=== PATIENT | female | born 1935 | race Caucasian/White ===

== ENCOUNTER 2018-10-16 08:22 | Emergency (ER) | payer MEDICARE, BC ==
[2018-10-16 09:00] LABS: #Eosinphils 0.1 thou/uL (0.0-0.7); #Lymphocytes 1.4 thou/uL (1.20-3.40); #Monocytes 0.3 thou/uL (0.11-0.59); #Neutrophils 3.5 thou/uL (1.40-6.50); %Basophils 0.4 % (0.0-1.0); %Eosinophils 1.7 % (0.0-10.0); %Lymphocytes 26.1 % (21.0-51.0); %Monocytes 5.8 % (0.0-10.0); Hemoglobin 13.3 g/dL (12.0-16.0); Mean Corpuscular HGB CONC 33.8 g/dL (32.0-36.0); Mean Corpuscular Volume 91.8 fL (78.0-98.0); Mean Platelet Volume 6.3 fL (7.4-10.4); Platelet Count 245 thou/uL (130-400); Red Blood Cell (RBC) Count 4.29 mill/uL (4.20-5.40); White Blood Cell (WBC) Count 5.3 thou/uL (4.8-10.8)
[2018-10-16 09:13] LABS: ALT (SGPT) 16 U/L (8-55); AST (SGOT) 18 U/L (5-34); Albumin 4.1 g/dL (3.4-4.8); Alkaline Phosphatase 93 U/L (40-150); Anion Gap 13 mmol/L (10-20); BUN (Urea Nitrogen) 10 mg/dL (9.8-20.1); Bilirubin, Total 0.6 mg/dL (0.2-1.2); Calc. Creatinine Clearance 0 mL/min (70-130); Calcium 9.3 mg/dL (7.8-10.44); Carbon Dioxide 22 mmol/L (23-31); Chloride 109 mmol/L (98-107); Estimated GFR-MDRD 81; Globulin 2.9 g/dL (2.4-3.5); Glucose 128 mg/dL (83-110); Potassium 3.8 mmol/L (3.5-5.1); Sodium 140 mmol/L (136-145)
[2018-10-16 09:17] LABS: CKMB 1.4 ng/mL (0-6.6); Troponin I Less than 0.010 ng/mL (< 0.028)
[2018-10-16] MEDS ORDERED: Lidocaine Viscous Sol 2% 15 ml UD Cup ONE (09:40)
[2018-10-16] MEDS ORDERED: Mag-Al 1200 mg/1200 mg/30 ML UDCUP ONE (09:40)
[2018-10-16 10:03] LABS: Bilirubin Negative (Negative); Blood, Urine Small (Negative); Clarity CLOUDY (Clear); Glucose, Urine (Dipstick) Negative (Negative); Leukocyte Small (Negative); Nitrite Negative (Negative); Protein, Urine (Dipstick) Negative (Neg-Trace); Specific Gravity, Urine 1.012 (1.002-1.036); Urobilinogen 0.2 mg/dL (0.2-1.0); pH, Urine 5.5 (5.0-9.0)
[2018-10-16 10:05] LABS: Bacteria/HPF 1+ HPF (None Seen); Hyaline Casts/LPF 0-3 HYALINE CAST LPF (0-3 Hyaline); Pathc Cast-AUWi Flag 0.72 (0-2.49)
--- NOTE | 2018-10-16 10:39 | RAD ---
PA AND LATERAL VIEWS OF THE CHEST: History: Chest pain FINDINGS: Comparison is made with exam of 01-13-16. The heart size is mildly enlarged. The lungs are well expanded without focal areas of consolidation, pneumothoraces, dwayne pulmonary edema or pleural effusions. There are degenerative changes in the spi ne. IMPRESSION: Mild cardiomegaly. POS: H
[2018-10-16 12:18] LABS: Troponin I Less than 0.010 ng/mL (< 0.028)
== END 2018-10-16 12:32 | disposition home or self-care (01) ==
LOC: ERS 08:22
DX: R10.13 Epigastric pain (principal); I10 Essential (primary) hypertension; M81.0 Age-related osteoporosis without current pathological fracture; E55.9 Vitamin D deficiency, unspecified
CPT/HCPCS: 36415; 71046; 80053; 81003; 81015; 82553; 84484; 85025; 93005

== ENCOUNTER 2019-01-22 23:04 | Inpatient (IN) | payer MEDICARE, BC ==
[2019-01-22] MEDS ORDERED: Aspirin Chewable 81 MG TAB ONE (23:15)
[2019-01-23 01:24] VITALS: BMI 26.1
[2019-01-23] MEDS ORDERED: Lorazepam 2 MG/ML VIAL SLOW IVP SCH (10:30)
[2019-01-23] MEDS ORDERED: Aspirin 325 mg Enteric Coated Tablet PO SCH (11:45)
--- NOTE | 2019-01-23 13:06 | MRI ---
MRI BRAIN NONCONTRAST: 01/23/2019 HISTORY: An 83-year-old female with acute stroke. COMPARISON: No prior MRIs. FINDINGS: There is a very small focus of restricted diffusion at the junction between the posterior aspect of t he posterior limb of the right internal capsule and the right thalamus, associated with mild T2 hyper intensity, representing a tiny acute lacunar infarction. There is no obstructive hydrocephalus, acut e intraaxial hemorrhage, mass effect, midline shift, or extraaxial fluid collection. Diffuse age-cameron ropriate parenchymal volume loss. Moderate chronic ischemic white matter changes in the mullins radia ta and centrum semiovale. IMPRESSION: Positive for acute tiny lacunar infarction at the junction between the posterior limb of the right in ternal capsule and the right thalamus. CODE T JN R POS: CARLY
--- NOTE | 2019-01-23 13:39 | ULT ---
CAROTID DUPLEX SONOGRAM: HISTORY: CVA. FINDINGS: RIGHT: Color and spectral Doppler evaluation, peak systolic velocity of 85 cm/s, and IC to CC ratio of 0.8 s uggests no hemodynamically significant stenosis within the extracranial right ICA. Antegrade flow wi thin the vertebral artery. LEFT: Color and spectral Doppler evaluation, peak systolic velocity of 70 cm/s, and IC to CC ratio 0.8 sugg ests no hemodynamically significant stenosis within the extracranial left ICA. Antegrade flow within the vertebral artery. IMPRESSION: No sonographic evidence of significant extracranial internal carotid artery stenosis. No significant plaque visualized. POS: CALDERON
[2019-01-23] MEDS: Cyclobenzaprine 10 MG TAB PO PRN (15:01)
--- NOTE | 2019-01-23 15:02 | HP ---
PRIMARY CARE PROVIDER: Morris Dillard MD CHIEF COMPLAINT: Leg weakness. HISTORY OF PRESENT ILLNESS: Ms. Lynne is a pleasant 83-year-old lady, who was seen at [facility] on January 23, 2019, following transfer from the emergency room at [facility]. She lives at home with her . Her is invalid. She reports that 2 days ago, she started having vertigo. She has a history of on and off vertigo. She has meclizine at home and she took meclizine. Around the time that she had vertigo, she also had leg weakness. She was dragging her left leg. She was trying to ambulate yesterday when she fell. She reports that her legs gave away. She also thinks that she may have tripped on something, but it is unclear. She was taken to the emergency room at [facility], where she was found to have left fibular fracture. She was transferred to the emergency room at [facility]. She denies any chest pain or shortness of breath. She denies any fevers or chills. She denies any nausea or vomiting. REVIEW OF SYSTEMS: All other systems reviewed and found to be negative. PAST MEDICAL HISTORY: Hyperactive bladder, hypertension, osteoporosis, and vertigo. PAST SURGICAL HISTORY: Tubal ligation. SOCIAL HISTORY: No history of tobacco use, alcohol use, or recreational drug use. CODE STATUS: I discussed her code status. She is full code. ALLERGIES: SULFA. CURRENT MEDICATIONS: 1. Antivert 25 mg every 6 hours as needed. 2. Lisinopril 10 mg daily. 3. Ibandronate 150 mg intramuscularly every month and ICaps one tablet daily. FAMILY HISTORY: Her father of stroke at age 53. PHYSICAL EXAMINATION: GENERAL: Ms. Lynne is awake and alert, not in acute distress. VITAL SIGNS: Blood pressure is 118/64, pulse 68, respiratory rate 18, and oxygen saturation 93% on room air. She is afebrile. EYES: No scleral icterus, no conjunctival pallor. ENT: Moist mucosal membranes. No oropharyngeal erythema or exudates. NECK: Supple, nontender, trachea is midline. RESPIRATORY: Accessory muscles of breathing are not active. Chest wall movements are symmetric bilaterally. LUNGS: Clear to auscultation without wheeze, rhonchi, or crepitations. CARDIOVASCULAR: S1 and S2 are heard, regular. Peripheral pulses palpable. No carotid bruit. No pericardial rub. ABDOMEN: Soft, nontender, bowel sounds heard, no hepatomegaly, no splenomegaly. NEUROLOGIC: Cranial nerves 2 through 12 intact, deep tendon reflexes 2+. Could not thoroughly assess her left lower extremity since it was in a cast. MUSCULOSKELETAL: Power is 5/5 in right upper and lower extremities and left upper extremity. Could not assess left lower extremity very well due to the presence of cast. SKIN: No rashes or subcutaneous nodules. LYMPHATIC: No cervical lymphadenopathy. PSYCHIATRIC: Normal mood, normal affect. The patient is oriented to person, place, and time. LABORATORY DATA: Ms. Lynne's labs and investigations were reviewed. I reviewed her telemetry, which shows normal sinus rhythm, no ST changes to suggest an acute coronary syndrome. I also reviewed noncontrast CT scan of the brain, which did not show any acute intracranial abnormality. Left tibia/fibula x-rays showed possible fracture of tibial eminence. Left foot x-ray showed nondisplaced distal fibular fracture. She has an unremarkable CBC, normal sodium, normal potassium, normal creatinine, unremarkable liver profile. ASSESSMENT AND PLAN: Ms. Lynne is a pleasant 83-year-old lady, who was seen at [facility] on January 23, 2019. Her problem list includes: 1. Left lower extremity weakness: Ms. Lynne is presenting with left lower extremity weakness, etiology is unclear. Differential diagnosis is still wide. She will also need to be ruled out for stroke. We will check MRI of brain, 2D echo and carotid Dopplers. We will consult Neurology Service. We will start her on aspirin. She reports that she takes aspirin at 81 mg dose daily. We will increase to 325 mg daily. We will also start her on statin. 2. Fall: The patient will be evaluated by Therapy Services. 3. Hypertension: We will monitor vital signs and titrate antihypertensives as needed. 4. Vertigo. 5. Distal fibular fracture: We will consult Orthopedic Service for opinion and help with management. Many thanks for allowing me to participate in your patient's care. Please feel free to contact me with any questions or concerns. LEVEL OF RISK: High. LEVEL OF COMPLEXITY: High. Job ID: [id number]
[2019-01-23] MEDS: Vit A,C & E/Lutein/Minerals Tablet PO SCH (21:10)
[2019-01-23] MEDS: Atorvastatin Calcium 40 MG TAB PO SCH (21:10)
[2019-01-23] MEDS: Stress 600 With Zinc 1 TAB PO SCH (21:10)
[2019-01-23] MEDS: Lisinopril 5 MG TAB PO SCH (21:10)
--- NOTE | 2019-01-23 23:32 | CON ---
DATE OF CONSULTATION: 01/23/2019 CONSULTING PHYSICIAN: Hospitalist Service. IMPRESSION: 1. Lacunar infarction with mild left hemiparesis. 2. Left foot fracture secondary to a fall. 3. Hypertension. 4. Mild hyperlipidemia. PLAN: 1. Add a statin. 2. Continue aspirin. 3. Echocardiogram. 4. PT assessment to determine whether the patient can be discharged to home. HISTORY OF PRESENT ILLNESS: Ms. Lynne is an 83-year-old woman who lives at home independently. She has had some chronic vertigo that she has had evaluated by ENT. She uses meclizine p.r.n. She was having some intermittent vertigo and was walking out to the garage. She suddenly felt that her legs would not support her and she collapsed to the floor. Her foot got caught against the door and she heard something crack. She was unable to get up after that. She was brought into the hospital for evaluation. She has not noticed any change in her speech. She did not note any weakness in her arm. There has been no difficulty swallowing. She initially had a CT scan of the brain, which showed moderately impressive small-vessel ischemic change. MRI of the brain shows an acute area of infarction involving the right internal capsule. Carotid ultrasound does not show any evidence of stenosis. Her cholesterol ratio is 3.7. PAST MEDICAL HISTORY: Hypertension. ALLERGIES: TAMIFLU AND SULFA. MEDICATIONS: Medication list was reviewed. SOCIAL HISTORY: No tobacco or alcohol use. FAMILY HISTORY: Noncontributory. REVIEW OF SYSTEMS: Ten-system review of systems is otherwise negative. PHYSICAL EXAMINATION: GENERAL: She is a pleasant elderly lady, in no acute distress. VITAL SIGNS: Stable. She is afebrile. HEENT: Pupils are equal and reactive. Conjunctivae clear. No nystagmus noted. Oropharynx is clear. NECK: Supple. No lymphadenopathy. EXTREMITIES: No cyanosis, clubbing, or edema. NEUROLOGIC: She was alert and cooperative. Her speech was fluent and clear. She had a mild left facial droop. Motor exam showed a fix on the left with arm roll testing. Sensation was intact to touch. The left leg could not be assessed due to her casting. The gait was not testable. No tremor or dysmetria was present. Sensation was subjectively intact to light touch. IMAGING: EKG shows sinus rhythm. SUMMARY: This is an elderly lady with hypertension and lacunar stroke causing some left-sided weakness resulting in a secondary fall and fracture. I would continue some aspirin and a low-dose statin. She will need to have PT assessment to determine whether she would be able to ambulate independently enough to return home or may need some rehab. Job ID: [id number]
[2019-01-24 05:04] LABS: #Basophils 0.1 thou/uL (0.0-0.2); #Eosinphils 0.2 thou/uL (0.0-0.7); #Lymphocytes 1.5 thou/uL (1.20-3.40); #Monocytes 0.5 thou/uL (0.11-0.59); #Neutrophils 3.6 thou/uL (1.40-6.50); %Eosinophils 3.2 % (0.0-10.0); %Lymphocytes 25.6 % (21.0-51.0); %Monocytes 8.2 % (0.0-10.0); %Neutrophils 62.1 % (42.0-75.0); Hemoglobin 12.8 g/dL (12.0-16.0); Mean Corpuscular HGB CONC 33.7 g/dL (32.0-36.0); Mean Corpuscular Hemoglobin 31.7 pg (27.0-31.0); Mean Corpuscular Volume 94.1 fL (78.0-98.0); Mean Platelet Volume 6.5 fL (7.4-10.4); Platelet Count 202 thou/uL (130-400); RBC Distribution Width 13.9 % (11.5-14.5); Red Blood Cell (RBC) Count 4.06 mill/uL (4.20-5.40); White Blood Cell (WBC) Count 5.8 thou/uL (4.8-10.8)
[2019-01-24 05:23] LABS: Anion Gap 12 mmol/L (10-20); BUN (Urea Nitrogen) 12 mg/dL (9.8-20.1); Calc. Creatinine Clearance 60 mL/min (70-130); Calcium 9.1 mg/dL (7.8-10.44); Carbon Dioxide 25 mmol/L (23-31); Cardiac Risk 4.7 (Less than 4.5); Chloride 108 mmol/L (98-107); Cholesterol 165 mg/dl (< 200 Desired); Estimated GFR-MDRD 75; Glucose 110 mg/dL (83-110); HDL Cholesterol 35 mg/dL (>60 Neg Risk); LDL Cholesterol, Calculated 107 mg/dL; Potassium 3.8 mmol/L (3.5-5.1); Sodium 141 mmol/L (136-145); Triglycerides 117 mg/dL (Less than 150)
[2019-01-24] MEDS: Enoxaparin Sodium 40 MG/0.4 ML SYRINGE SC SCH (10:36)
[2019-01-24] MEDS: Vit A,C & E/Lutein/Minerals Tablet PO SCH ×2 (10:37→20:30)
[2019-01-24] MEDS: Stress 600 With Zinc 1 TAB PO SCH ×2 (10:37→20:31)
[2019-01-24] MEDS: Aspirin 325 mg Enteric Coated Tablet PO SCH (10:37)
[2019-01-24] MEDS: Lisinopril 10 MG TAB PO SCH (10:37)
--- NOTE | 2019-01-24 10:59 | CON ---
DATE OF CONSULTATION: 01/24/2019 CONSULTING PHYSICIAN: Hospitalist Service. CHIEF COMPLAINT: Left ankle pain. HISTORY OF PRESENT ILLNESS: Ms. Lynne is an 83-year-old female, who has a history she reports of vertigo. She has been admitted to the hospital with a lacunar infarction with left hemiparesis. She fell prior to her admission. She twisted her foot. She was found to have a nondisplaced distal fibular fracture. A splint was placed in the emergency department. She has been in the hospital for workup regarding her infarction. She had MRI yesterday. The patient lives independently normally. PAST MEDICAL HISTORY: Hypertension. ALLERGIES: TAMIFLU AND SULFA. MEDICATIONS: Please see chart. SOCIAL HISTORY: The patient denies tobacco, alcohol, or drug use. FAMILY MEDICAL HISTORY: Noncontributory. REVIEW OF SYSTEMS: Positive for left ankle pain. Otherwise, negative 10-point review of systems currently. DIAGNOSTIC DATA: X-rays of the left ankle demonstrate a nondisplaced distal fibular fracture, this appears acute. PHYSICAL EXAMINATION: VITAL SIGNS: Temperature is 98.3, pulse is 73, respiratory rate 14, oxygen saturation 93%, and blood pressure is 118/68. GENERAL: She is alert and oriented, sitting upright, in no apparent distress. RESPIRATORY: Breathing comfortably. ABDOMEN: Soft, nontender, and nondistended. MUSCULOSKELETAL: The left leg is in a splint. She has a warm and well-perfused foot. She can wiggle the toes. Normal sensation distally. IMPRESSION: Cerebrovascular accident and left distal fibular fracture, nondisplaced. PLAN: At this point, the patient will be able to be placed in a walking boot. I would like to have her splint removed when the boot arrives. Her boot will be more comfortable and we will allow her to ambulate with more ease. She can weight bear as tolerated. I would like to see her back in the clinic in approximately 3 weeks for repeat x-ray of the ankle. Job ID: [id number]
--- NOTE | 2019-01-24 14:26 | PDOC.PN ---
- Subjective Encounter Start Date: 01/24/19 Encounter Start Time: 07:00 Pt seen for followup re: ischemic CVA. c/o LLE weakness, no other complaints. - Objective Resuscitation Status - Order Detail: 01/23/19 09:10 Resuscitation Status Routine Resuscitation Status: FULL: Full Resuscitation Discussed with: patient Vital Signs & Weight: Vital Signs (12 hours) Temp Pulse Pulse Pulse Resp BP BP 01/24/19 11:31 97.7 F 91 18 01/24/19 10:37 148/76 H 01/24/19 10:15 86 92 148/76 H 01/24/19 09:50 81 86 112/65 01/24/19 08:00 01/24/19 07:32 98.3 F 73 14 01/24/19 04:00 98.1 F 72 18 BP BP Pulse Ox 01/24/19 11:31 133/63 97 01/24/19 10:37 01/24/19 10:15 152/78 H 01/24/19 09:50 148/76 H 01/24/19 08:00 93 L 01/24/19 07:32 118/68 93 L 01/24/19 04:00 104/55 L 95 Weight Weight 142 lb 11.2 oz I&O: 01/23/19 01/24/19 01/25/19 06:59 06:59 06:59 Intake Total 1210 Balance 1210 Result Diagrams: 01/24/19 04:37 01/24/19 04:37 Phys Exam - Physical Examination Constitutional: NAD HEENT: moist MMs, sclera anicteric, oral pharynx no lesions, 2+ tonsils Neck: no nodes, no JVD, supple, full ROM Respiratory: clear to auscultation bilateral Cardiovascular: RRR, no rub S1, S2 Gastrointestinal: soft, non-tender, no distention, positive bowel sounds Neurological: moves all 4 limbs Psychiatric: normal affect Dx/Plan (1) Ischemic cerebrovascular accident (CVA) Code(s): I63.9 - CEREBRAL INFARCTION, UNSPECIFIED Status: Acute Comment: aspirin dose increased, started on statin (2) Left fibular fracture Code(s): S82.402A - UNSP FRACTURE OF SHAFT OF LEFT FIBULA, INIT FOR CLOS FX Status: Acute Comment: conservative management (3) HTN (hypertension) Code(s): I10 - ESSENTIAL (PRIMARY) HYPERTENSION Status: Chronic Comment: monitor vital signs, titrate antihypertensives as needed (4) Vertigo Code(s): R42 - DIZZINESS AND GIDDINESS Status: Chronic Comment: Improved - Plan * . Review of Systems - Review of Systems Constitutional: negative: fever, chills, sweats, weakness, malaise Respiratory: negative: Cough, Shortness of Breath, SOB with Excertion, Pleuritic Pain, Wheezing Cardiovascular: negative: chest pain, palpitations, orthopnea, paroxysmal nocturnal dyspnea, edema, light headedness Gastrointestinal: negative: Nausea, Vomiting, Abdominal Pain, Diarrhea, Constipation, Melena, Hematochezia Musculoskeletal: Leg Pain Neurological: Weakness - Medications/Allergies Allergies/Adverse Reactions: Allergies Allergy/AdvReac Type Severity Reaction Status Date / Time acetaminophen Allergy Verified 01/23/19 04:59 [From Theraflu Multi-Symptom Cold] dextromethorphan Allergy Verified 01/23/19 04:59 [From Theraflu Multi-Symptom Cold] phenylephrine Allergy Verified 01/23/19 04:59 [From Theraflu Multi-Symptom Cold] Sulfa (Sulfonamide Allergy Verified 01/23/19 01:04 Antibiotics) Medications: Current Medications Aspirin (Ecotrin) 325 mg PO DAILY [facility] Last Admin: 01/24/19 10:37 Dose: 325 mg Atorvastatin Calcium (Lipitor) 40 mg PO HS [facility] Last Admin: 01/23/19 21:10 Dose: 40 mg Cyclobenzaprine HCl (Flexeril) 10 mg PO TIDPRN PRN PRN Reason: Muscle Spasm Last Admin: 01/23/19 15:01 Dose: 10 mg Enoxaparin Sodium (Lovenox) 40 mg SC 0900 [facility] Last Admin: 01/24/19 10:36 Dose: 40 mg Lisinopril (Zestril) 10 mg PO DAILY [facility] Last Admin: 01/24/19 10:37 Dose: 10 mg Lisinopril (Zestril) 5 mg PO HS [facility] Last Admin: 01/23/19 21:10 Dose: 5 mg Multivitamins/Minerals (Ocuvite With Lutein) 1 tab PO BID [facility] Last Admin: 01/24/19 10:37 Dose: 1 tab Multivitamins/Zinc (Stress 600 With Zinc) 1 tab PO BID [facility] Last Admin: 01/24/19 10:37 Dose: 1 tab Sodium Chloride (Flush - Normal Saline) 10 ml IVF PRN PRN PRN Reason: Saline Flush Last Admin: 01/23/19 21:13 Dose: 10 ml
[2019-01-24] MEDS: Atorvastatin Calcium 40 MG TAB PO SCH (20:30)
[2019-01-24] MEDS: Lisinopril 5 MG TAB PO SCH (20:30)
[2019-01-24] MEDS: Cyclobenzaprine 10 MG TAB PO PRN (22:53)
[2019-01-25] MEDS: Cyclobenzaprine 10 MG TAB PO PRN (04:19)
[2019-01-25 05:33] LABS: #Eosinphils 0.2 thou/uL (0.0-0.7); #Lymphocytes 1.7 thou/uL (1.20-3.40); #Monocytes 0.6 thou/uL (0.11-0.59); #Neutrophils 3.5 thou/uL (1.40-6.50); %Basophils 0.3 % (0.0-1.0); %Eosinophils 2.8 % (0.0-10.0); %Lymphocytes 28.2 % (21.0-51.0); %Neutrophils 58.6 % (42.0-75.0); Hemoglobin 12.7 g/dL (12.0-16.0); Mean Corpuscular Hemoglobin 31.4 pg (27.0-31.0); Mean Corpuscular Volume 95.3 fL (78.0-98.0); Mean Platelet Volume 6.6 fL (7.4-10.4); Platelet Count 208 thou/uL (130-400); Red Blood Cell (RBC) Count 4.05 mill/uL (4.20-5.40)
[2019-01-25 05:53] LABS: Anion Gap 13 mmol/L (10-20); BUN (Urea Nitrogen) 13 mg/dL (9.8-20.1); Calc. Creatinine Clearance 61 mL/min (70-130); Calcium 9.1 mg/dL (7.8-10.44); Carbon Dioxide 22 mmol/L (23-31); Chloride 108 mmol/L (98-107); Estimated GFR-MDRD 76; Glucose 117 mg/dL (83-110); Sodium 139 mmol/L (136-145)
[2019-01-25] MEDS: Vit A,C & E/Lutein/Minerals Tablet PO SCH (08:27)
[2019-01-25] MEDS: Enoxaparin Sodium 40 MG/0.4 ML SYRINGE SC SCH (08:28)
[2019-01-25] MEDS: Lisinopril 10 MG TAB PO SCH (08:28)
[2019-01-25] MEDS: Aspirin 325 mg Enteric Coated Tablet PO SCH (08:28)
[2019-01-25] MEDS: Stress 600 With Zinc 1 TAB PO SCH (08:28)
--- NOTE | 2019-01-25 12:08 | DIS ---
DATE OF ADMISSION: 01/22/2019 DATE OF DISCHARGE: 01/25/2019 PRIMARY CARE PROVIDER: Morris Dillard MD. DISCHARGE DIAGNOSES: 1. Acute ischemic cerebrovascular accident. 2. Acute lacunar infarction. 3. Left fibular fracture. CONDITION OF PATIENT ON THE DAY OF DISCHARGE: Stable. I assessed Ms. Lynne on the day of discharge. She denies any chest pain or shortness of breath. Vital signs are stable. S1 and S2 are heard, regular. Lungs are clear to auscultation bilaterally. DISCHARGE MEDICATIONS: 1. Lisinopril 10 mg in the morning and 5 mg at bedtime. 2. Vitamin B complex tablet one tablet two times a day. 3. PreserVision soft gel one capsule two times a day. 4. Aspirin 325 mg daily. 5. Lipitor 40 mg at bedtime. CONSULTATIONS DURING THIS HOSPITALIZATION: 1. Neurology, Dr. Rasmussen. 2. Orthopedic surgery, Dr. Scott. HOSPITAL COURSE: Ms. Lynne is a pleasant 83-year-old lady, who was admitted to [facility] for left lower extremity weakness and fall on January 23, 2019. Please refer to my history and physical note dated January 23, 2019, for further details. She was seen by Orthopedic Surgery Service for left distal fibular fracture. She was advised boot and weightbearing as tolerated. Orthopedic Surgery Service will follow up with her in clinic in approximately 3 weeks for repeat x-ray of the ankle. MRI of the brain showed acute tiny lacunar infarction at the junction between the posterior limb of the right internal capsule and the right thalamus. A 2D echocardiogram showed left ventricular ejection fraction of 50% to 55%, normal-sized left atrium, impaired relaxation compatible with diastolic dysfunction, mild tricuspid regurgitation, and no thrombus in the cardiac chambers. Carotid Dopplers did not show any sonographic evidence of significant extracranial internal carotid artery stenosis. She was seen by Neurology Service. She was advised to continue aspirin and start statin. I increased her aspirin dose to 325 mg daily. She was also seen by Therapy Services. She is being discharged to [facility] for further management. On the day of discharge, she has white count 6000, hemoglobin 12.7, platelet count 208,000, normal sodium, normal potassium, and normal creatinine. During this hospitalization, she had triglycerides 117, cholesterol 165, LDL cholesterol 107, and HDL cholesterol 35. Many thanks for allowing me to participate in your patient's care. Please feel free to contact me with any questions or concerns. DISCHARGE DESTINATION: [facility] Bed. TIME SPENT: Total amount of time spent coordinating this discharge: 32 minutes. Job ID: [id number]
[2019-01-25 13:07] VITALS: TEMP 97.5
[2019-01-25 13:13] VITALS: BP 116/60
== END 2019-01-25 15:39 | disposition swing bed (61) | DRG 65 ==
LOC: ERS 23:04 → 2SE 23:30
PROVIDERS: ADMIT Hospitalist; ATTEND Hospitalist
DX: I63.81 Other cerebral infarction due to occlusion or stenosis of small artery (principal); G81.94 Hemiplegia, unspecified affecting left nondominant side; S82.402A Unspecified fracture of shaft of left fibula, initial encounter for closed fracture; W18.30XA Fall on same level, unspecified, initial encounter; I10 Essential (primary) hypertension; E78.5 Hyperlipidemia, unspecified; R40.2362 Coma scale, best motor response, obeys commands, at arrival to emergency department; R40.2142 Coma scale, eyes open, spontaneous, at arrival to emergency department; R40.2252 Coma scale, best verbal response, oriented, at arrival to emergency department; N32.81 Overactive bladder; M81.0 Age-related osteoporosis without current pathological fracture; R42 Dizziness and giddiness; Z79.899 Other long term (current) drug therapy; Z88.2 Allergy status to sulfonamides; Z88.8 Allergy status to other drugs, medicaments and biological substances; Z82.3 Family history of stroke
CPT/HCPCS: 36415; 70551; 80048; 80061; 85025; 93306; 93880; 99285; J1650; J2060

== ENCOUNTER 2022-02-18 13:11 | Observation (INO) | payer MEDICARE ==
[2022-02-18 18:51] VITALS: BMI 25.3
[2022-02-18] MEDS ORDERED: Acetaminophen 650 MG Suppository PR PRN (20:51)
[2022-02-18] MEDS ORDERED: Ondansetron ODT 4 MG TAB PO PRN (20:51)
[2022-02-18] MEDS ORDERED: Ondansetron PF 4 MG/2 ML Vial IVP PRN (20:51)
[2022-02-18] MEDS ORDERED: Acetaminophen 325 MG TAB PO PRN (20:51)
[2022-02-18] MEDS ORDERED: hydrALAZINE 20 MG/ML VIAL SLOW IVP PRN (20:57)
[2022-02-18] MEDS ORDERED: Furosemide 40 MG/4 ML VIAL SLOW IVP SCH (21:00)
[2022-02-18] MEDS ORDERED: Aspirin Chewable 81 MG TAB PO SCH (21:15)
[2022-02-18] MEDS ORDERED: Electrolyte Replacement Protocol 1 EACH FS SCH (21:45)
[2022-02-18 22:04] LABS: Troponin I Less than 0.010 ng/mL (< 0.028)
[2022-02-19 04:29] LABS: #Eosinphils 0.2 thou/uL (0.0-0.7); #Lymphocytes 1.9 thou/uL (1.20-3.40); #Monocytes 0.5 thou/uL (0.11-0.59); #Neutrophils 4.1 thou/uL (1.40-6.50); %Basophils 0.5 % (0.0-1.0); %Eosinophils 3.2 % (0.0-10.0); %Monocytes 7.1 % (0.0-10.0); %Neutrophils 61.2 % (42.0-75.0); Hemoglobin 13.2 g/dL (12.0-16.0); Mean Corpuscular HGB CONC 33.5 g/dL (32.0-36.0); Mean Corpuscular Hemoglobin 32.4 pg (27.0-31.0); Mean Corpuscular Volume 96.8 fL (78.0-98.0); Mean Platelet Volume 6.7 fL (7.4-10.4); Platelet Count 203 thou/uL (130-400); RBC Distribution Width 13.4 % (11.5-14.5); Red Blood Cell (RBC) Count 4.07 mill/uL (4.20-5.40); White Blood Cell (WBC) Count 6.8 thou/uL (4.8-10.8)
[2022-02-19 04:52] LABS: Anion Gap 15 mmol/L (10-20); BUN (Urea Nitrogen) 14 mg/dL (9.8-20.1); Calc. Creatinine Clearance 50 mL/min (70-130); Calcium 9.1 mg/dL (7.8-10.44); Carbon Dioxide 23 mmol/L (23-31); Chloride 106 mmol/L (98-107); Glucose 138 mg/dL (83-110); Magnesium 1.9 mg/dL (1.6-2.6); Potassium 3.6 mmol/L (3.5-5.1); Sodium 140 mmol/L (136-145)
[2022-02-19] MEDS ORDERED: Magnesium 2 GM/50 ML(in water) 2 GM in Premix Bag 1 BAG IVPB SCH (07:00)
[2022-02-19] MEDS ORDERED: Aspirin Chewable 81 MG TAB PO SCH (09:00)
[2022-02-19] MEDS ORDERED: Enoxaparin Sodium 40 MG/0.4 ML SYRINGE SC SCH (09:00)
[2022-02-19] MEDS ORDERED: ADENOSINE 60 MG/20 ML VIAL ONE (10:47)
[2022-02-19 12:16] LABS: SARS-CoV-2 PCR by NAA Not Detected (NotDetected)
[2022-02-19] MEDS ORDERED: Iopamidol 370 76% 100 ML VIAL ONE (12:41)
[2022-02-19 15:11] VITALS: BP 144/63; TEMP 97.9
== END 2022-02-19 17:10 | disposition home or self-care (01) ==
LOC: 2SW 13:11
PROVIDERS: ADMIT Internal Medicine; ATTEND Internal Medicine
DX: R07.89 Other chest pain (principal); R06.02 Shortness of breath; I11.0 Hypertensive heart disease with heart failure; I50.32 Chronic diastolic (congestive) heart failure; I69.398 Other sequelae of cerebral infarction; G62.89 Other specified polyneuropathies; M81.0 Age-related osteoporosis without current pathological fracture; I34.0 Nonrheumatic mitral (valve) insufficiency; I77.810 Thoracic aortic ectasia; Z86.16 Personal history of COVID-19; Z79.82 Long term (current) use of aspirin; Z79.83 Long term (current) use of bisphosphonates; Z79.899 Other long term (current) drug therapy; Z88.2 Allergy status to sulfonamides; Z88.8 Allergy status to other drugs, medicaments and biological substances; Z20.822 Contact with and (suspected) exposure to COVID-19
CPT/HCPCS: 71275; 78452; 80048; 83036; 83735; 83880; 84484; 85025; 85379; 93017; 93306; 94760 ×2; A9500; U0003; U0005; 36415; 96374; 96375; G0378; J0153; J1940; J3475; Q9967

== ENCOUNTER 2023-07-07 21:25 | Inpatient (IN) | payer OTHER, MEDICARE ==
[2023-07-07] MEDS ORDERED: Morphine 2 MG/ML VIAL ONE (22:07)
[2023-07-07 22:13] LABS: #Basophils 0.1 thou/uL (0.0-0.2); #Eosinphils 0.1 thou/uL (0.0-0.7); #Monocytes 0.5 thou/uL (0.11-0.59); #Neutrophils 6.4 thou/uL (1.40-6.50); %Basophils 0.6 % (0.0-1.0); %Eosinophils 1.7 % (0.0-10.0); %Lymphocytes 13.1 % (21.0-51.0); %Monocytes 5.5 % (0.0-10.0); %Neutrophils 78.6 % (42.0-75.0); Hematocrit 35.4 % (36.0-47.0); Mean Corpuscular HGB CONC 33.9 g/dL (32.0-36.0); Mean Corpuscular Hemoglobin 33.8 pg (27.0-31.0); Mean Corpuscular Volume 99.7 fl (78.0-98.0); Mean Platelet Volume 9.5 fL (7.4-10.4); Platelet Count 176 10x3/uL (130-400); RBC Distribution Width 14.2 % (11.5-14.5); Red Blood Cell (RBC) Count 3.55 mill/uL (4.20-5.40); White Blood Cell (WBC) Count 8.2 10x3/uL (4.8-10.8)
[2023-07-07 22:37] LABS: ALT (SGPT) 21 U/L (8-55); AST (SGOT) 23 U/L (5-34); Albumin 3.9 g/dL (3.4-4.8); Alkaline Phosphatase 89 U/L (40-110); Anion Gap 10 mmol/L (10-20); BUN (Urea Nitrogen) 14 mg/dL (9.8-20.1); Bilirubin, Total 0.7 mg/dL (0.2-1.2); CK (CPK) 92 U/L (29-168); Calc. Creatinine Clearance 0 mL/min (70-130); Calcium 9.2 mg/dL (7.8-10.44); Carbon Dioxide 25 mmol/L (23-31); Chloride 107 mmol/L (98-107); Estimated GFR 61; Globulin 2.3 g/dL (2.4-3.5); Glucose 159 mg/dL (83-110); Potassium 3.9 mmol/L (3.5-5.1); Protein, Total 6.2 g/dL (5.8-8.1); Sodium 138 mmol/L (136-145)
[2023-07-07] MEDS ORDERED: Ipratropium/Albuterol 3 ML NEB NEB PRN (23:47)
[2023-07-07] MEDS ORDERED: Ondansetron PF 4 MG/2 ML Vial IVP PRN (23:47)
[2023-07-08] MEDS ORDERED: Acetaminophen 500 MG TAB ONE (00:42)
[2023-07-08] MEDS: Acetaminophen 500 MG TAB PO SCH ×4 (00:45→18:15)
[2023-07-08] MEDS: Sodium Chloride 0.9% 1,000 ML IV SCH ×3 (00:45→18:16)
[2023-07-08 04:24] LABS: #Eosinphils 0.1 thou/uL (0.0-0.7); #Monocytes 0.5 thou/uL (0.11-0.59); #Neutrophils 5.6 thou/uL (1.40-6.50); %Basophils 0.4 % (0.0-1.0); %Eosinophils 0.8 % (0.0-10.0); %Lymphocytes 16.7 % (21.0-51.0); %Neutrophils 74.7 % (42.0-75.0); Hematocrit 33.5 % (36.0-47.0); Mean Corpuscular HGB CONC 32.8 g/dL (32.0-36.0); Mean Corpuscular Hemoglobin 33.4 pg (27.0-31.0); Mean Corpuscular Volume 101.8 fl (78.0-98.0); Mean Platelet Volume 9.5 fL (7.4-10.4); Platelet Count 177 10x3/uL (130-400); RBC Distribution Width 14.6 % (11.5-14.5); Red Blood Cell (RBC) Count 3.29 mill/uL (4.20-5.40); White Blood Cell (WBC) Count 7.5 10x3/uL (4.8-10.8)
[2023-07-08 04:38] LABS: INR-International Normal Ratio 1.1
[2023-07-08 04:39] LABS: PTT 28.3 sec (22.9-36.1)
[2023-07-08 04:47] LABS: Anion Gap 9 mmol/L (10-20); BUN (Urea Nitrogen) 13 mg/dL (9.8-20.1); Calc. Creatinine Clearance 47 mL/min (70-130); Calcium 8.8 mg/dL (7.8-10.44); Carbon Dioxide 28 mmol/L (23-31); Chloride 105 mmol/L (98-107); Estimated GFR 69; Glucose 155 mg/dL (83-110); Potassium 4.4 mmol/L (3.5-5.1); Sodium 138 mmol/L (136-145)
[2023-07-08] MEDS: Morphine 2 MG/ML VIAL SLOW IVP PRN ×2 (05:22→07:51)
[2023-07-08] MEDS ORDERED: Morphine 2 MG/ML VIAL ONE (05:23)
[2023-07-08] MEDS ORDERED: CEFAZOLIN 2 GM in Sodium Chloride 0.9% 100 ML IVPB SCH ×2 (07:15→19:17)
[2023-07-08 07:43] VITALS: BMI 26.2
[2023-07-08] MEDS: Gabapentin 100 MG CAP PO SCH ×3 (07:51→20:58)
[2023-07-08] MEDS: Cyclobenzaprine 10 MG TAB PO PRN (07:52)
[2023-07-08] MEDS ORDERED: Famotidine 20 MG TAB PO SCH (09:00)
[2023-07-08] MEDS ORDERED: traMADol HCl 50 MG TAB PO PRN (10:48)
[2023-07-08] MEDS ORDERED: CEFAZOLIN 2 GM VIAL ONE (11:37)
[2023-07-08] MEDS ORDERED: Sodium Chloride 0.9% 100 ML ONE (11:37)
[2023-07-08] MEDS ORDERED: fentaNYL 50 mcg/mL 1 mL Vial ONE (11:54)
[2023-07-08] MEDS: traMADol HCl 50 MG TAB PO SCH ×2 (12:00→18:15)
[2023-07-08] MEDS ORDERED: Ondansetron PF 4 MG/2 ML Vial ONE (12:18)
[2023-07-08] MEDS ORDERED: PROPOFOL 200 MG/20 ML VIAL ONE (12:18)
[2023-07-08] MEDS ORDERED: Glycopyrrolate 0.2 MG/ML 5 ML SYRINGE ONE (12:18)
[2023-07-08] MEDS ORDERED: NEOSTIGMINE 3 MG/3 ML SYR 3 MG/3 ML SYRINGE ONE (12:18)
[2023-07-08] MEDS ORDERED: Lidocaine 1% PF 5 ML VIAL ONE (12:18)
[2023-07-08] MEDS ORDERED: Dexamethasone 20 MG/5 ML VIAL ONE (12:18)
[2023-07-08] MEDS ORDERED: Rocuronium Bromide 10 MG/ML (10ML VIAL) ONE (12:18)
[2023-07-09] MEDS: Acetaminophen 500 MG TAB PO SCH ×4 (00:06→18:01)
[2023-07-09] MEDS: traMADol HCl 50 MG TAB PO SCH ×4 (00:06→18:01)
[2023-07-09] MEDS: Sodium Chloride 0.9% 1,000 ML IV SCH (01:06)
[2023-07-09] MEDS: CEFAZOLIN 2 GM in Sodium Chloride 0.9% 100 ML IVPB SCH ×2 (05:39→13:01)
[2023-07-09 05:46] LABS: #Monocytes 0.7 thou/uL (0.11-0.59); #Neutrophils 6.9 thou/uL (1.40-6.50); %Basophils 0.1 % (0.0-1.0); %Eosinophils 0.2 % (0.0-10.0); %Lymphocytes 10.7 % (21.0-51.0); %Monocytes 8.6 % (0.0-10.0); %Neutrophils 79.8 % (42.0-75.0); Mean Corpuscular HGB CONC 33.3 g/dL (32.0-36.0); Mean Corpuscular Hemoglobin 33.8 pg (27.0-31.0); Mean Corpuscular Volume 101.5 fl (78.0-98.0); Mean Platelet Volume 9.7 fL (7.4-10.4); Platelet Count 180 10x3/uL (130-400); RBC Distribution Width 14.8 % (11.5-14.5); Red Blood Cell (RBC) Count 2.66 mill/uL (4.20-5.40); White Blood Cell (WBC) Count 8.6 10x3/uL (4.8-10.8)
[2023-07-09] MEDS ORDERED: Meclizine HCl 25 MG TAB PO PRN (06:17)
[2023-07-09] MEDS ORDERED: Sodium Chloride 0.9% 1,000 ML IV SCH (06:30)
[2023-07-09] MEDS ORDERED: Non-Formulary Item 1 EACH (Ibandronate Sodium [Ibandronate Sodium] 150 MG Tablet) PO SCH (06:30)
[2023-07-09] MEDS: Ferrous Sulfate 325 MG TAB PO SCH ×2 (08:41→18:01)
[2023-07-09] MEDS: Gabapentin 100 MG CAP PO SCH ×3 (08:41→20:38)
[2023-07-09] MEDS: Atorvastatin Calcium 40 MG TAB PO SCH (08:42)
[2023-07-09] MEDS: Ascorbic Acid 500 mg Chewable Tablet PO SCH ×2 (08:42→20:39)
[2023-07-10] MEDS: traMADol HCl 50 MG TAB PO SCH ×4 (00:21→17:48)
[2023-07-10] MEDS: Acetaminophen 500 MG TAB PO SCH ×4 (00:21→17:48)
[2023-07-10 07:35] LABS: #Eosinphils 0.2 thou/uL (0.0-0.7); #Monocytes 0.6 thou/uL (0.11-0.59); %Basophils 0.4 % (0.0-1.0); %Eosinophils 2.7 % (0.0-10.0); %Lymphocytes 17.9 % (21.0-51.0); %Monocytes 7.7 % (0.0-10.0); %Neutrophils 70.9 % (42.0-75.0); Hemoglobin 8.4 g/dL (12.0-16.0); Mean Corpuscular HGB CONC 33.6 g/dL (32.0-36.0); Mean Corpuscular Hemoglobin 33.5 pg (27.0-31.0); Mean Corpuscular Volume 99.6 fl (78.0-98.0); Mean Platelet Volume 9.9 fL (7.4-10.4); Platelet Count 152 10x3/uL (130-400); RBC Distribution Width 14.9 % (11.5-14.5); Red Blood Cell (RBC) Count 2.51 mill/uL (4.20-5.40); White Blood Cell (WBC) Count 7.1 10x3/uL (4.8-10.8)
[2023-07-10] MEDS: Ferrous Sulfate 325 MG TAB PO SCH ×2 (09:54→17:48)
[2023-07-10] MEDS: Ascorbic Acid 500 mg Chewable Tablet PO SCH ×2 (09:54→21:11)
[2023-07-10] MEDS: Gabapentin 100 MG CAP PO SCH ×3 (09:54→21:12)
[2023-07-10] MEDS: Aspirin 325 mg Enteric Coated Tablet PO SCH (09:55)
[2023-07-10] MEDS: Atorvastatin Calcium 40 MG TAB PO SCH (09:55)
[2023-07-10] MEDS ORDERED: Senokot S 8.6-50 MG TAB PO SCH (14:15)
[2023-07-10] MEDS: Polyethylene Glycol 3350 17 GM Packet PO SCH (15:23)
[2023-07-10] MEDS: Senokot S 8.6-50 MG TAB PO SCH (21:12)
[2023-07-10] MEDS: Cyclobenzaprine 10 MG TAB PO PRN (21:12)
[2023-07-11] MEDS: traMADol HCl 50 MG TAB PO SCH ×3 (00:04→13:20)
[2023-07-11] MEDS: Acetaminophen 500 MG TAB PO SCH ×3 (00:04→13:21)
[2023-07-11 06:21] LABS: #Eosinphils 0.2 thou/uL (0.0-0.7); #Monocytes 0.4 thou/uL (0.11-0.59); #Neutrophils 4.4 thou/uL (1.40-6.50); %Basophils 0.5 % (0.0-1.0); %Eosinophils 3.2 % (0.0-10.0); %Lymphocytes 18.5 % (21.0-51.0); %Monocytes 7.1 % (0.0-10.0); %Neutrophils 70.2 % (42.0-75.0); Hematocrit 25.9 % (36.0-47.0); Hemoglobin 8.7 g/dL (12.0-16.0); Mean Corpuscular HGB CONC 33.6 g/dL (32.0-36.0); Mean Corpuscular Hemoglobin 33.5 pg (27.0-31.0); Mean Corpuscular Volume 99.6 fl (78.0-98.0); Mean Platelet Volume 9.6 fL (7.4-10.4); Platelet Count 165 10x3/uL (130-400); RBC Distribution Width 15.1 % (11.5-14.5); White Blood Cell (WBC) Count 6.2 10x3/uL (4.8-10.8)
[2023-07-11 06:43] LABS: Anion Gap 9 mmol/L (10-20); BUN (Urea Nitrogen) 8 mg/dL (9.8-20.1); Calc. Creatinine Clearance 58 mL/min (70-130); Calcium 8.8 mg/dL (7.8-10.44); Carbon Dioxide 25 mmol/L (23-31); Chloride 103 mmol/L (98-107); Estimated GFR 84; Glucose 121 mg/dL (83-110); Potassium 4.3 mmol/L (3.5-5.1); Sodium 133 mmol/L (136-145)
[2023-07-11] MEDS ORDERED: Ascorbic Acid 500 mg Chewable Tablet PO SCH (08:00)
[2023-07-11] MEDS ORDERED: Milk Of Magnesia 30 ML UDCUP PO SCH (08:30)
[2023-07-11] MEDS: Senokot S 8.6-50 MG TAB PO SCH (09:55)
[2023-07-11] MEDS: Ferrous Sulfate 325 MG TAB PO SCH (09:55)
[2023-07-11] MEDS: Gabapentin 100 MG CAP PO SCH (09:55)
[2023-07-11] MEDS: Aspirin 325 mg Enteric Coated Tablet PO SCH (09:55)
[2023-07-11] MEDS: Atorvastatin Calcium 40 MG TAB PO SCH (09:55)
[2023-07-11] MEDS: Polyethylene Glycol 3350 17 GM Packet PO SCH (09:55)
[2023-07-11 11:20] VITALS: BP 146/66; TEMP 97.6
[2023-07-11] MEDS ORDERED: Nystatin 500,000 UNITS/5 ML UDCUP SSW SCH (13:00)
[2023-07-11] MEDS ORDERED: Nystatin 500,000 UNITS/5 ML UDCUP PO SCH (13:00)
[2023-07-11] MEDS ORDERED: Benzocaine (Dental) 7 GM TUBE TOP SCH (21:00)
== END 2023-07-11 15:48 | disposition swing bed (61) | DRG 481 ==
LOC: ERS 21:25 → ERHOLD 22:45 → OBSVTOIN 23:47 → SURG A 07-08 07:37
PROVIDERS: ADMIT Specialist; ATTEND Specialist
PROC: 0QS606Z Reposition Right Upper Femur with Intramedullary Internal Fixation Device, Open Approach (ICD-10-PCS; principal; 2023-07-08)
DX: S72.21XA Displaced subtrochanteric fracture of right femur, initial encounter for closed fracture (principal); D62 Acute posthemorrhagic anemia; I69.354 Hemiplegia and hemiparesis following cerebral infarction affecting left non-dominant side; I10 Essential (primary) hypertension; M81.0 Age-related osteoporosis without current pathological fracture; E55.9 Vitamin D deficiency, unspecified; N32.89 Other specified disorders of bladder; M25.561 Pain in right knee; Z98.51 Tubal ligation status; Z88.2 Allergy status to sulfonamides; Z79.82 Long term (current) use of aspirin; Y92.007 Garden or yard of unspecified non-institutional (private) residence as the place of occurrence of the external cause; Z88.8 Allergy status to other drugs, medicaments and biological substances; W01.0XXA Fall on same level from slipping, tripping and stumbling without subsequent striking against object, initial encounter
CPT/HCPCS: 27502; 36415; 70450; 72125; 80048; 80053; 82550; 85025; 85610; 85730; 86850; 86900; 86901; 93005; C1713; G0390; J1100; J1650; J2272; J2405; J2704; J3010; J3490; J7050

== ENCOUNTER 2024-01-04 09:30 | Outpatient (CLI) | payer MEDICARE | END 2024-01-04 09:31 | disposition home or self-care (01) | LOC: SCSMRI 09:30 | PROVIDERS: ATTEND Internal Medicine Gastroenterology | DX: R93.3 Abnormal findings on diagnostic imaging of other parts of digestive tract (principal); K86.2 Cyst of pancreas | CPT/HCPCS: 74183 ==

== ENCOUNTER 2024-06-15 09:44 | Observation (INO) | payer MEDICARE ==
[2024-06-15] MEDS ORDERED: Calcium Carbonate 500 MG ChewTAB PO PRN (14:02)
[2024-06-15] MEDS ORDERED: Acetaminophen 325 MG TAB PO PRN (14:02)
[2024-06-15] MEDS ORDERED: Senokot S 8.6-50 MG TAB PO PRN (14:02)
[2024-06-15] MEDS ORDERED: hydrALAZINE 20 MG/ML VIAL SLOW IVP PRN (14:02)
[2024-06-15] MEDS ORDERED: Ondansetron PF 4 MG/2 ML Vial IVP PRN (14:02)
[2024-06-15] MEDS ORDERED: Ondansetron ODT 4 MG TAB PO PRN (14:02)
[2024-06-15] MEDS ORDERED: Acetaminophen 650 MG Suppository PR PRN (14:02)
[2024-06-15] MEDS: Diazepam 2 MG TAB PO PRN (16:08)
[2024-06-15] MEDS: Ascorbic Acid 500 mg Chewable Tablet PO SCH (16:08)
[2024-06-15] MEDS: Atorvastatin Calcium 40 MG TAB PO SCH (20:59)
[2024-06-15] MEDS: Amoxicillin/Potassium Clav 500 MG TAB PO SCH (20:59)
[2024-06-15] MEDS: Gabapentin 100 MG CAP PO SCH (20:59)
[2024-06-15] MEDS: Lisinopril 10 MG TAB PO SCH (21:00)
[2024-06-16 04:26] LABS: #Basophils 0.03 10x3/uL (0.0-0.2); %Basophils 0.6 % (0.0-1.0); %Eosinophils 3.1 % (0.0-10.0); %Lymphocytes 29.1 % (21.0-51.0); %Monocytes 6.7 % (0.0-10.0); %Neutrophils 60.1 % (42.0-75.0); Hematocrit 31.2 % (36.0-47.0); Hemoglobin 10.7 g/dL (12.0-16.0); Mean Corpuscular HGB CONC 34.3 g/dL (32.0-36.0); Mean Corpuscular Hemoglobin 34.7 pg (27.0-31.0); Mean Corpuscular Volume 101.3 fL (78.0-98.0); Platelet Count 159 10x3/uL (130-400); RBC Distribution Width 14.4 % (11.5-14.5); Red Blood Cell (RBC) Count 3.08 mill/uL (4.20-5.40)
[2024-06-16 04:57] LABS: Anion Gap 11 mmol/L (10-20); BUN (Urea Nitrogen) 10 mg/dL (9.8-20.1); Calc. Creatinine Clearance 51 mL/min (70-130); Calcium 8.9 mg/dL (7.8-10.44); Carbon Dioxide 22 mmol/L (23-31); Chloride 108 mmol/L (98-107); Estimated GFR 78; Glucose 113 mg/dL (83-110); Potassium 3.4 mmol/L (3.5-5.1); Sodium 138 mmol/L (136-145)
[2024-06-16] MEDS: Pantoprazole DR 40 MG TAB PO SCH (08:48)
[2024-06-16] MEDS: Aspirin 325 mg Enteric Coated Tablet PO SCH (08:49)
[2024-06-16] MEDS: NIFEdipine XL 30 MG ER.TAB PO SCH ×2 (08:49→15:36)
[2024-06-16] MEDS: Magnesium Oxide 400 MG TAB PO SCH (08:49)
[2024-06-16] MEDS: Potassium Chloride 20 MEQ TAB PO SCH (12:45)
[2024-06-17 04:50] LABS: #Basophils 0.03 10x3/uL (0.0-0.2); %Basophils 0.5 % (0.0-1.0); %Eosinophils 3.2 % (0.0-10.0); %Lymphocytes 27.3 % (21.0-51.0); %Monocytes 8.3 % (0.0-10.0); %Neutrophils 60.4 % (42.0-75.0); Hematocrit 35.4 % (36.0-47.0); Hemoglobin 12.1 g/dL (12.0-16.0); Mean Corpuscular HGB CONC 34.2 g/dL (32.0-36.0); Mean Corpuscular Hemoglobin 33.8 pg (27.0-31.0); Mean Corpuscular Volume 98.9 fL (78.0-98.0); Platelet Count 174 10x3/uL (130-400); RBC Distribution Width 14.4 % (11.5-14.5); Red Blood Cell (RBC) Count 3.58 mill/uL (4.20-5.40)
[2024-06-17 05:08] LABS: Anion Gap 13 mmol/L (10-20); BUN (Urea Nitrogen) 14 mg/dL (9.8-20.1); Calc. Creatinine Clearance 55 mL/min (70-130); Calcium 9.2 mg/dL (7.8-10.44); Carbon Dioxide 22 mmol/L (23-31); Chloride 110 mmol/L (98-107); Estimated GFR 84; Glucose 108 mg/dL (83-110); Potassium 3.8 mmol/L (3.5-5.1); Sodium 141 mmol/L (136-145)
[2024-06-17] MEDS: NIFEdipine XL 60 MG ER.TAB PO SCH (09:08)
[2024-06-17 11:20] VITALS: BP 125/57; TEMP 98.2
[2024-06-17 14:11] VITALS: BMI 25.7
[2024-06-18] MEDS ORDERED: Ferrous Sulfate 325 MG TAB PO SCH (08:00)
== END 2024-06-17 15:20 | disposition home or self-care (01) ==
LOC: 2NO 11:28
PROVIDERS: ADMIT Internal Medicine; ATTEND Internal Medicine
DX: R42 Dizziness and giddiness (principal); I11.0 Hypertensive heart disease with heart failure; I50.30 Unspecified diastolic (congestive) heart failure; R00.1 Bradycardia, unspecified; G62.9 Polyneuropathy, unspecified; M81.0 Age-related osteoporosis without current pathological fracture; F41.9 Anxiety disorder, unspecified; H66.92 Otitis media, unspecified, left ear; Z98.890 Other specified postprocedural states; Z79.82 Long term (current) use of aspirin; Z86.73 Personal history of transient ischemic attack (TIA), and cerebral infarction without residual deficits; Z79.899 Other long term (current) drug therapy; Z98.49 Cataract extraction status, unspecified eye; Z98.51 Tubal ligation status; Z88.2 Allergy status to sulfonamides; Z88.8 Allergy status to other drugs, medicaments and biological substances
CPT/HCPCS: 36415; 70551; 80048; 85025; G0378